=== PATIENT | female | born 1935 | race Caucasian/White ===

== ENCOUNTER 2018-12-04 11:11 | Day surgery (SDC) | payer OTHER ==
[2018-12-02 15:37] VITALS: BMI 25.9
[~2018-12-04 11:11] MED LIST: ACETAMINOPHEN 325 MG TABLET (FP) PO PRN; DEXAMETHASONE SOD PHOSPHATE 4 MG/1 ML VIAL ONE; ERTAPENEM SODIUM 1 GM VIAL IVPB ONE; ERTAPENEM SODIUM 1 GM VIAL ONE; ONDANSETRON 4 MG/2 ML VIAL IVPUSH PRN; PROPOFOL 20 ML ONE; ROCURONIUM BROMIDE 50 MG/5 ML SYRINGE ONE; morphine SULFATE 4 MG/ML VIAL IVPB PRN
[2018-12-04] MEDS ORDERED: LACTATED RINGERS SOLUTION 1,000 ML IV SCH (11:15)
[2018-12-04] MEDS ORDERED: GLYCOPYRROLATE 0.2 MG/1 ML VIAL ONE (12:32)
[2018-12-04] MEDS ORDERED: NEOSTIGMINE METHYLSULFATE 0.5 MG/ML - 10 ML MDV ONE (12:32)
--- NOTE | 2018-12-04 13:40 | PN ---
Progress Note, Physician Chief Complaint: s/p Liver and GB biopsy today path pending - d/w dr Rod surgery awake alert NAD VSS God Daughter Laine at bedside pt has occ pain on morphine prn - Current Medication List Current Medications: Active Medications Acetaminophen (Tylenol -) 650 mg PO Q4H PRN PRN Reason: FEVER Enoxaparin Sodium (Lovenox -) 40 mg SQ DAILY [facility] Fentanyl (Sublimaze Injection -) 50 mcg IVPUSH [id number] PRN PRN Reason: PAIN-PACU ORDER X 4 DOSES ONLY Lactated Ringer's (Lactated Ringers Solution) 1,000 mls @ 125 mls/hr IV ASDIR RAYMUNDO Potassium Chloride/Dextrose/Sod Cl (D5-1/2ns+20 Meq Kcl -) 20 meq in 1,000 mls @ 100 mls/hr IV ASDIR RAYMUNDO Losartan Potassium (Cozaar -) 50 mg PO DAILY [facility] Metoprolol Succinate (Toprol Xl -) 100 mg PO DAILY [facility] Morphine Sulfate (Morphine Sulfate) 4 mg IVPB Q3H PRN PRN Reason: PAIN LEVEL 7 - 10 Ondansetron HCl (Zofran Injection) 4 mg IVPUSH Q6H PRN PRN Reason: NAUSEA AND/OR VOMITING Ondansetron HCl (Zofran Injection) 4 mg IVPUSH Q6H PRN PRN Reason: NAUSEA Oxycodone HCl (Roxicodone -) 7.5 mg PO Q4H PRN PRN Reason: PAIN LEVEL 4 - 6 Pantoprazole Sodium (Protonix Iv) 40 mg IVPUSH DAILY [facility] Triamterene/HCTZ (Dyazide 25/37.5mg) 1 cap PO DAILY [facility] - Objective Vital Signs: Vital Signs Temperature 98.1 F 12/04/18 07:28 Pulse Rate 61 12/04/18 07:28 Respiratory Rate 20 12/04/18 07:28 Blood Pressure 116/67 12/04/18 07:28 O2 Sat by Pulse Oximetry (%) 97 12/04/18 07:28 Constitutional: Yes: No Distress, Calm Eyes: Yes: Conjunctiva Clear HENT: Yes: Atraumatic Neck: Yes: Supple Cardiovascular: Yes: Regular Rate and Rhythm Respiratory: Yes: CTA Bilaterally Gastrointestinal: Yes: Soft, Tenderness (RUQ with palp) Genitourinary: No: Hematuria Musculoskeletal: No: Joint Stiffness, Joint Swelling Extremities: No: Cold, Cool, Cyanosis, Erythema Edema: No Peripheral Pulses WNL: Yes Integumentary: No: Rash, Venous Stasis Changes Neurological: Yes: WNL, Alert, Oriented ...Motor Strength: WNL Psychiatric: Yes: WNL, Alert, Oriented. No: Agitated, Suicidal Ideation - ....Imaging Other: Report Reviewed Assessment/Plan 82 YOF HTN OA DJD recent weight loss found to have incidental gallbladder changes on CT scan (asymptomatic) now s/p liver and GB biopsy; GUIDO drain in d/w pt and Laine: will wait for final path report for further management possible DC home in am if OK with surgery will get VNS home PT f/u with PCP GI and surgery in 1-2 weeks after DC - Laine to call me next week for final path report
[2018-12-04] MEDS ORDERED: ONDANSETRON 4 MG/2 ML VIAL ONE (14:17)
[2018-12-04] MEDS ORDERED: FAMOTIDINE 20 MG/50 ML IVPB 20 MG/50 ML MG IVPB ONE (14:42)
[2018-12-04] MEDS ORDERED: FAMOTIDINE 20 MG PREMIXED IVPB IVPB ONE (14:45)
[2018-12-04] MEDS: D5-1/2NS+20 MEQ KCL - 20 MEQ/1,000 ML INFUS.BAG IV SCH ×2 (15:10→15:36)
--- NOTE | 2018-12-04 18:39 | OP ---
DATE OF OPERATION: 12/04/2018 PREOPERATIVE DIAGNOSIS: Abnormal gallbladder, rule out gallbladder carcinoma, hypertension, hypercholesterolemia. POSTOPERATIVE DIAGNOSIS: Abnormal gallbladder, rule out gallbladder carcinoma, hypertension, hypercholesterolemia. PROCEDURE: Limited laparoscopy, cholecystotomy, extraction of gallstone, gallbladder biopsy, closure of cholecystotomy, extensive lysis of adhesions, and extensive peritoneal lavage. SURGEON: Chip Rod M.D. ASSOCIATE JAVA DEVELOPER: Talib Bean M.D. ANESTHESIOLOGIST: Machelle Peace M.D. ANESTHESIA: General anesthesia. ESTIMATED BLOOD LOSS: Minimal. SPECIMEN: Portion of gallbladder. INDICATION FOR PROCEDURE: This is an 82-year-old female who has an unexplained 20-pound weight loss over the 2-month period. She underwent a CAT scan of the abdomen and pelvis and it showed a diffusely thickened gallbladder wall with cholelithiasis and minimal surrounding inflammatory change. The reading was suspicious for cholecystitis versus gallbladder adenocarcinoma. An ultrasound was performed at [facility] and it had a similar finding. She underwent a colonoscopy 2 years ago, and the colonoscopy, according to the daughter, was unremarkable. She is here today for the above procedure. DESCRIPTION OF PROCEDURE: Patient identified and appropriately positioned on the operating table. After placement of general anesthesia, the abdomen was prepped and draped in the usual sterile fashion with ChloraPrep. An infraumbilical incision was deep in the subcutaneous tissue. The fascia was divided sharply. The peritoneum incised, and under direct vision a Veress needle followed by structural needle placed. There were 3 ports placed under direct vision as well, all 5 mm. There was extensive small bowel and omentum plastered to the anterior abdominal wall in the right lower quadrant, right arely abdomen from her previous surgery, and therefore the adhesions were taken down with LigaSure device. This took over 20 minutes of the case. Next the gallbladder was able to be visualized in the right upper quadrant was subsequently identified and there appeared to be omentum plastered to what appeared to be the gallbladder. The omentum was then off what I thought was the gallbladder with LigaSure device, and in doing so it was very apparent that this patient had a densely thickened adherent mass to be what was the dome of the gallbladder. The stomach (distal portion beyond the pylorus/first portion of the duodenum) was plastered to the medial side of the gallbladder. Given this finding, the LigaSure was used to help free the omentum stuck to the body of the gallbladder out laterally. The gallbladder body itself was densely hard and unable to be grasped and therefore to allow visualization of the undersurface of the liver, the falciform was lifted superiorly and the fat and omentum to the lateral aspect of the gallbladder was taken down with the LigaSure. This was then worked medially and clearly as I came medially the stomach/duodenum was plastered and very densely adherent to the medial side of the gallbladder. This could not be , and there was no plane that could be discretely defined between the gallbladder and the plastered duodenum/possible stomach, and therefore I made a decision to perform a cholecystotomy, open the gallbladder, and go through the posterior aspect of the gallbladder along the liver bed and excise a portion of the gallbladder itself. The gallbladder removed was very hard and in the midst of this process. This portion was then subsequently sent to the pathologist for frozen section. Given the plastered nature of this, there were 2 options: one is to convert to an open procedure, or close and address this at a latter date. Since the patient' s initial presentation was an abnormal gallbladder on an incidental CT scan secondary to a 20 pound weight loss over 2 months; I felt it was better not to convert to an open operation in this asymptomatic 82 year old female. At this point the frozen section results were in, and the frozen section results demonstrated no obvious carcinoma identified, and given the generous biopsy of the gallbladder off the liver in the hard area, this is I suspect a public health representative biopsy and not a missed biopsy; however, I would still like to wait for the permanent sections. The cholecystotomy then was subsequently closed. There was a large gallstone noted, and therefore it was extracted and prior to closure the cholecystotomy. The cholecystotomy was closed with a 3-0 V-Loc dissolving suture. The operative field irrigated, noted to be hemostatic, and there was no obvious bile. A 10 flat GUIDO was placed in the subhepatic space over the cholecystotomy closure and brought out through one of the 5 mm port sites. The subhepatic space now was irrigated with warm saline approximately 5 L used. Irrigant retrieved and noted to be clear. Ports were removed. Port sites were noted to be hemostatic. The fascia at the infraumbilical port site reapproximated with interrupted 0 Vicryl suture. All skin closed with annia followed by Dermabond. A GUIDO was sewn to the skin with a 3-0 silk suture. At the conclusion of this case, sponge and needle counts were correct. ATTESTATION: Brief operative note handwritten on the preprinted form. [facility] will be queried prior to giving narcotics. Gabino BOB [id number] cc: Gabino Sosa
[2018-12-04] MEDS: oxyCODONE HCL 5 MG TABLET PO PRN (21:12)
[2018-12-05 05:58] VITALS: BP 110/64; PULSE 78; TEMP 98.7
--- NOTE | 2018-12-05 08:30 | PN ---
Progress Note, Physician Chief Complaint: awake alert NAD occ RUQ pain less than yesterday no N/V afebrile advance diet per surgery - Current Medication List Current Medications: Active Medications Acetaminophen (Tylenol -) 650 mg PO Q4H PRN PRN Reason: FEVER Enoxaparin Sodium (Lovenox -) 40 mg SQ DAILY [facility] Fentanyl (Sublimaze Injection -) 50 mcg IVPUSH [id number] PRN PRN Reason: PAIN-PACU ORDER X 4 DOSES ONLY Last Admin: 12/04/18 14:02 Dose: 25 mcg Lactated Ringer's (Lactated Ringers Solution) 1,000 mls @ 125 mls/hr IV ASDIR [facility] Last Admin: 12/04/18 16:40 Dose: Not Given Potassium Chloride/Dextrose/Sod Cl (D5-1/2ns+20 Meq Kcl -) 20 meq in 1,000 mls @ 100 mls/hr IV ASDIR [facility] Last Admin: 12/04/18 15:36 Dose: 100 mls/hr Losartan Potassium (Cozaar -) 50 mg PO DAILY [facility] Metoprolol Succinate (Toprol Xl -) 100 mg PO DAILY [facility] Morphine Sulfate (Morphine Sulfate) 4 mg IVPB Q3H PRN PRN Reason: PAIN LEVEL 7 - 10 Last Admin: 12/04/18 16:27 Dose: 4 mg Ondansetron HCl (Zofran Injection) 4 mg IVPUSH Q6H PRN PRN Reason: NAUSEA AND/OR VOMITING Ondansetron HCl (Zofran Injection) 4 mg IVPUSH Q6H PRN PRN Reason: NAUSEA Last Admin: 12/04/18 14:16 Dose: 4 mg Oxycodone HCl (Roxicodone -) 7.5 mg PO Q4H PRN PRN Reason: PAIN LEVEL 4 - 6 Last Admin: 12/04/18 21:12 Dose: 7.5 mg Pantoprazole Sodium (Protonix Iv) 40 mg IVPUSH DAILY [facility] Triamterene/HCTZ (Dyazide 25/37.5mg) 1 cap PO DAILY [facility] - Objective Vital Signs: Vital Signs Temperature 98.7 F 12/05/18 05:55 Pulse Rate 78 12/05/18 05:55 Respiratory Rate 20 12/05/18 05:55 Blood Pressure 110/64 12/05/18 05:55 O2 Sat by Pulse Oximetry (%) 99 12/04/18 15:47 Constitutional: Yes: No Distress, Calm Eyes: Yes: Conjunctiva Clear HENT: Yes: Atraumatic Neck: Yes: Supple Respiratory: Yes: CTA Bilaterally Gastrointestinal: Yes: Soft. No: Tenderness Genitourinary: No: Hematuria Musculoskeletal: No: Joint Stiffness, Joint Swelling Extremities: No: Cold, Cool, Cyanosis Edema: No Integumentary: No: Rash, Venous Stasis Changes Neurological: Yes: WNL, Alert, Oriented ...Motor Strength: WNL Psychiatric: Yes: WNL, Alert, Oriented. No: Agitated, Suicidal Ideation - ....Imaging Other: Report Reviewed Assessment/Plan 82 YOF HTN OA DJD recent weight loss found to have incidental gallbladder changes on CT scan (asymptomatic) now s/p liver and GB biopsy; GUIDO drain in d/w pt: will wait for final path report for further management possible DC home today if OK with surgery will get VNS home PT d/w CM pt to have close f/u with PCP GI and surgery in 1-2 weeks after DC - Laine (pt' s GD) to call me next week for final path report
[2018-12-05] MEDS: oxyCODONE HCL 5 MG TABLET PO PRN (09:46)
[2018-12-05] MEDS ORDERED: PANTOPRAZOLE SODIUM 40 MG VIAL IVPUSH SCH (10:00)
[2018-12-05] MEDS ORDERED: TRIAMTERENE AND HCTZ - 37.5 MG/25 MG CAPSULE PO SCH (10:00)
[2018-12-05] MEDS ORDERED: ENOXAPARIN NA (PORCINE) 40 MG/0.4 ML DISP.SYRIN SQ SCH (10:00)
[2018-12-05] MEDS ORDERED: LOSARTAN POTASSIUM 50 MG TABLET (FP) PO SCH (10:00)
[2018-12-05] MEDS ORDERED: PT OWN MED DRAWER 7, Y5N ONE (10:18)
--- NOTE | 2018-12-06 16:06 | PATH ---
Surgical Pathology Report Patient Name: JACK FLORES [facility]. Rec. #: [id number] /Age/Gender: 1935 (Age: 82) / F Account: [id number] Location: AMBULATORY SURG Taken: 12/04/2018 Received: 12/04/2018 Reported: 12/06/2018 Physicians: Chip Rod Specimen(s) Received A: PORTION OF FAT OVERLYING GALLBLADDER B: CHOLECYSTIC FAT C: PORTION OF SUSPECTED GALBALLDER WALL D: PORTION OF GALL BLADDER E: PORTION OF GALLSTONE Clinical History Calculus of gallbladder Intraoperative Consult Diagnosis A. Portion of fat overlying gallbladder, FS: Fibrous tissue with focal reactive change. B. Cholecystic fat, FS: Fat necrosis with reactive change. D. Portion of gallbladder rule out adenocarcinoma, FS: Fat necrosis with reactive change. Dr. Powell Final Diagnosis A. PORTION OF FAT OVERLYING GALLBLADDER, EXCISION (FS): PORTION OF FIBROADIPOSE TISSUE WITH HEMORRHAGE, FAT NECROSIS WITH HISTIOCYTIC REACTION INCLUDING MULTINUCLEATE GIANT CELLS. B.FREDDIE and CYSTIC FAT, BIOPSY (FS): PORTION OF FIBROADIPOSE TISSUE WITH HEMORRHAGE, FAT NECROSIS WITH HISTIOCYTIC REACTION, AND REACTIVE FIBROTIC CHANGE. C. PORTION OF SUSPECTED GALLBLADDER WALL, BIOPSY: PORTION OF FIBROCONNECTIVE AND TISSUE WITH HEMORRHAGE, FAT NECROSIS WITH HISTIOCYTIC REACTION INCLUDING MULTINUCLEATE GIANT CELLS. D. PORTION OF GALLBLADDER, EXCISION (FS): PORTION OF FIBROADIPOSE TISSUE WITH SEVERE ACUTE INFLAMMATION, HEMORRHAGE, FAT NECROSIS WITH HISTIOCYTIC REACTION AND REACTIVE FIBROBLASTIC PROLIFERATION. NO LINING EPITHELIUM PRESENT. NEGATIVE FOR CARCINOMA. E. PORTION OF GALLSTONE, REMOVAL: CALCULI, CONSISTENT WITH GALLSTONE. GROSS EXAMINATION ONLY. Electronically Signed Eufemia Powell M.D. Gross Description A. Received fresh, labeled "portion of fat overlying gallbladder" is a portion of irregular fibroadipose tissue measuring 1.0 X 1.0 x 0.3 cm. The specimen is entirely submitted for frozen section. The frozen section residue is submitted in cassette A1. B. Received fresh, labeled "cholecystic fat" is a portion of irregular fibroadipose tissue measuring 1.4 x 1.0 x 0.4 cm. The specimen is bisected and entirely submitted for frozen section. The frozen section residue is submitted in cassette B1. C. Received fresh, labeled "portion of suspected gallbladder wall" multiple portions of irregular fibroadipose tissue measuring 0.5 x 0.5 x 0.3 cm in aggregate. The frozen is canceled per surgeon's request. The specimen is entirely submitted in cassette C1. D. Received fresh, labeled "portion of gallbladder" is a portion of irregular fibroadipose tissue measuring 2.1 x 1.5 x 1.3 cm. The specimen is serially sectioned. One collections representative section is submitted for frozen section. The frozen section residue is submitted in cassette D1, the remaining tissue is entirely submitted in D2 and D3. E. Received are fixative, labeled "portion of gallstones" and multiple fragments of love-black choleliths having an aggregate are 0.8 x 0 7 x 0.2 cm. For gross examination only. AE/12/05/2018 ebram/12/05/2018
== END 2018-12-05 12:59 | disposition home or self-care (01) ==
LOC: JASUSAT 11:11 → J8W 15:15 → JASUSAT 12-05 12:59
PROVIDERS: ATTEND Surgery
PROC: 0WBH4ZX Excision of Retroperitoneum, Percutaneous Endoscopic Approach, Diagnostic (ICD-10-PCS; 2018-12-04)
PROC: 0FT44ZZ Resection of Gallbladder, Percutaneous Endoscopic Approach (ICD-10-PCS; principal; 2018-12-04 10:00)
DX: K80.20 Calculus of gallbladder without cholecystitis without obstruction (principal); R93.2 Abnormal findings on diagnostic imaging of liver and biliary tract; I10 Essential (primary) hypertension; E78.00 Pure hypercholesterolemia, unspecified; M79.89 Other specified soft tissue disorders
CPT/HCPCS: 86850; 86900; 86901; 88300-TC; 88305-TC; 88331-TC; 94760